=== PATIENT | female | born 1985 | race Caucasian/White ===

== ENCOUNTER → 2019-08-05 09:16 | Outpatient (CLI) | payer BC, SELFPAY ==
[2019-03-04 11:38] VITALS: BMI 36.1
--- NOTE | 2019-08-05 09:29 | MRI_ITS ---
STUDY: MRI BRAIN WITH AND WITHOUT CONTRAST REASON FOR EXAM: Female, 34 years old. vision changes, tremors, n/t TECHNIQUE: Standardized multiplanar fat and water weighted pulse sequences were obtained. IV 23cc dotarem was administered for the contrast portion of the examination. COMPARISON: None. FINDINGS: Normal size of the ventricles and extra-axial spaces for the patient''s age. Normal white matter tracts of the supratentorial brain. There is no evidence for recent intracranial ischemia or other cause of cytotoxic edema on diffusion weighted imaging (DWI). Normal T2* images of the brain without demonstrated susceptibility artifact. There is no demonstrated hemosiderin stain. Normal bilateral basal ganglia. Normal thalami. There is no extra-axial fluid accumulation. Normal flow voids within the major intracranial circulation suggesting patency by spin echo criteria. Normal venous enhancement. There is no enhancing intra-axial or extra-axial abnormality. Normal sella turcica, pituitary gland, infundibular stalk, optic chiasm and hypothalamus. Normal tectal plate and pineal gland. Normal midbrain, ada and medulla. Normal cerebellum. Normal basal cisterns. Normal bilateral temporal bones. Normal bilateral internal auditory canals. No demonstrated orbital abnormality, within the constraints of a routine brain study. Normal visualized paranasal sinuses. Normal calvarium and skull base. Normal visualized soft tissue structures. Normal visualized upper cervical spine. MRI/Brain W/WO Contrast IMPRESSION: Normal unenhanced and enhanced MRI of the brain. Electronically Signed: Shahid Soto MD at 12:22 EDT Tel , Service support ,
== END ==
PROVIDERS: PCP Nurse Practitioner Primary Care; Referring Provider Nurse Practitioner Primary Care; Visit Provider Nurse Practitioner Primary Care
DX: H53.9 Unspecified visual disturbance (principal); R29.818 Other symptoms and signs involving the nervous system; R25.1 Tremor, unspecified
CPT/HCPCS: 70553; A9575

== ENCOUNTER → 2020-01-14 15:01 | Outpatient (CLI) | payer BC, SELFPAY ==
[2020-01-14 14:55] VITALS: BMI 36.1
--- NOTE | 2020-01-14 15:02 | RAD_ITS ---
STUDY: X-RAY CHEST REASON FOR EXAM: Female, 34 years old. CHEST TIGHTNESS X 1 WEEK TECHNIQUE: Frontal and lateral views of the chest COMPARISON: None. FINDINGS: The lungs are clear and expanded. There is no demonstrated pleural abnormality. Normal size heart. Normal mediastinum and rober. Normal visualized pulmonary arteries. Normal visualized aortic arch and descending thoracic aorta. Normal visualized thoracic spine. Normal visualized ribs, clavicles, and shoulders. There is no demonstrated abnormality of the visualized soft tissue structures of the upper abdomen. RAD/Chest PA and Lateral IMPRESSION: Normal x-ray examination of the chest. Electronically Signed: Parisa Schmitz, at 15:21 EDT Tel , Service support ,
== END ==
PROVIDERS: PCP Nurse Practitioner Primary Care; Visit Provider Physician Assistant Surgical
DX: J20.9 Acute bronchitis, unspecified (principal)
CPT/HCPCS: 71046

== ENCOUNTER 2020-02-21 12:21 | Outpatient (RCR) | payer BC, SELFPAY ==
[2020-01-14 14:55] VITALS: BMI 36.1
== END 2020-02-23 23:59 ==
LOC: EMPH 12:21
PROVIDERS: PCP Nurse Practitioner Primary Care; Visit Provider Family Medicine Geriatric Medicine
DX: Z11.59 Encounter for screening for other viral diseases (principal)
CPT/HCPCS: 87635; U0003

== ENCOUNTER 2020-03-23 15:55 | Outpatient (RCR) | payer BC, SELFPAY ==
[2020-01-14 14:55] VITALS: BMI 36.1
== END 2020-03-25 23:59 ==
LOC: EMPH 15:55
PROVIDERS: PCP Nurse Practitioner Primary Care; Visit Provider Family Medicine Geriatric Medicine
DX: Z03.818 Encounter for observation for suspected exposure to other biological agents ruled out (principal)
CPT/HCPCS: 87426

== ENCOUNTER 2020-04-17 10:41 | Outpatient (RCR) | payer BC, SELFPAY ==
[2020-01-14 14:55] VITALS: BMI 36.1
== END 2020-04-24 23:59 ==
LOC: EMPH 10:41
PROVIDERS: PCP Nurse Practitioner Primary Care; Referring Provider Family Medicine Geriatric Medicine; Visit Provider Family Medicine Geriatric Medicine
DX: Z03.818 Encounter for observation for suspected exposure to other biological agents ruled out (principal)
CPT/HCPCS: 87426

== ENCOUNTER 2020-05-17 14:03 | Outpatient (RCR) | payer BC, SELFPAY ==
[2020-01-14 14:55] VITALS: BMI 36.1
== END 2020-05-25 23:59 ==
LOC: EMPH 14:03
PROVIDERS: PCP Nurse Practitioner Primary Care; Referring Provider Family Medicine Geriatric Medicine; Visit Provider Family Medicine Geriatric Medicine
DX: Z03.818 Encounter for observation for suspected exposure to other biological agents ruled out (principal)
CPT/HCPCS: 87426

== ENCOUNTER → 2020-06-15 17:47 | Outpatient (CLI) | payer OTHER, BC, SELFPAY ==
[2020-01-14 14:55] VITALS: BMI 36.1
--- NOTE | 2020-06-15 17:59 | MRI_ITS ---
Right sciatica. Chronic back pain MR Spine Lumbar W/O Contrast Technique:Sagittal T1-T2 and STIR and axial T1 and T2-weighted images # of images including paperwork:122 Comparison:none Findings: The conus ends at the L1-L2 disc space and appears within normal limits. L1-2: Disc height and hydration are preserved. There is no evidence of the disc contour abnormality or canal stenosis. No significant neural foraminal narrowing or nerve root impingement. L2-3: Disc height and hydration are preserved. There is no evidence of the disc contour abnormality or canal stenosis. No significant neural foraminal narrowing or nerve root impingement. L3-4: Disc height and hydration are preserved. There is no evidence of the disc contour abnormality or canal stenosis. No significant neural foraminal narrowing or nerve root impingement. L4-5: Disc height and hydration are preserved. There is no evidence of the disc contour abnormality or canal stenosis. No significant neural foraminal narrowing or nerve root impingement. L5-S1:There is a mild annular bulge at L5-S1. There is no significant neural foraminal narrowing or nerve root impingement MRI/Spine Lumbar (Routine) IMPRESSION: Minimal annular bulge L5-S1 with no significant nerve root impingement or neural foraminal narrowing at 0549 Reported and signed by: Sunshine Pickard DO Electronically Signed: Sunshine Pickard DO at 5:48 EST Tel , Service support ,
== END ==
PROVIDERS: PCP Nurse Practitioner Primary Care; Referring Provider Nurse Practitioner Primary Care; Visit Provider Nurse Practitioner Primary Care
DX: M54.41 Lumbago with sciatica, right side (principal); G89.29 Other chronic pain
CPT/HCPCS: 72148

== ENCOUNTER → 2021-11-12 | Outpatient (CLI) | payer OTHER, BC, SELFPAY ==
--- NOTE | 2021-11-12 13:15 | RAD_ITS ---
STUDY: X-RAY - RIGHT WRIST REASON FOR EXAM: Female, 36 years old. wrist pain TECHNIQUE: 3 view(s) of the wrist were obtained. COMPARISON: None. FINDINGS: Normal visualized distal radius and ulna. Normal radiocarpal articulation. Normal distal radioulnar articulation. Normal carpal bones. Normal carpal articulations. Normal carpometacarpal articulation of the thumb. Normal second through fifth carpometacarpal articulations. Normal visualized metacarpal bones. The soft tissue structures are unremarkable. RAD/Wrist min 3 Views IMPRESSION: Normal x-ray examination of the wrist. Electronically Signed: Shahid Soto MD at 13:39 EDT ,
== END | disposition home or self-care (01) ==
PROVIDERS: PCP Internal Medicine; Referring Provider Physician Assistant Surgical; Visit Provider Physician Assistant Surgical
DX: S66.911A Strain of unspecified muscle, fascia and tendon at wrist and hand level, right hand, initial encounter (principal)
CPT/HCPCS: 73110

== ENCOUNTER → 2022-01-16 | Outpatient (CLI) | payer OTHER, BC, SELFPAY ==
--- NOTE | 2022-01-16 16:18 | CT_ITS ---
STUDY: CT ABDOMEN AND PELVIS WITH CONTRAST REASON FOR EXAM: Female, 36 years old. Left lower quadrant pain beginning 5 days ago. Today with right sided pain. History of left UPJ obstruction with surgery. RADIATION DOSAGE (If Supplied By Facility): CTDIvol = ( 19.64 ) mGy, DLP = ( 1135.01 ) mGycm TECHNIQUE: Transaxial images were obtained from the dome of the diaphragm to the symphysis pubis with oral contrast. IV 100mL Isovue-370 was administered. Sagittal and coronal images were reconstructed. Individualized dose optimization techniques were used for this CT. COMPARISON: None. FINDINGS: The visualized lung bases are unremarkable. The visualized portions of the heart are within normal limits. There is hepatomegaly with diffuse hepatic enlargement. Normal gallbladder and extrahepatic biliary system. Normal spleen. Normal pancreas. Normal bilateral adrenal glands. 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 It is otherwise unremarkable. Normal left kidney. Normal bilateral ureters. Normal visualized stomach. Normal small intestine. Normal colon. The appendix is visualized and appears normal. Normal abdominal aorta. Normal inferior vena cava. Normal retroperitoneum. Normal urinary bladder. Normal uterine. There is a 2.1 x 1.3 x 2.1 cm cyst versus dominant follicle left ovary. Normal right ovary. No pelvic lymphadenopathy. No free air or free fluid is seen within the cavity. There is a surgical clip in the anterior cul-de-sac. As well as another in the posterior cul-de-sac. Question displaced tubal ligation clips. Normal abdominal wall. Normal osseous structures. CT/Abdomen/Pelvis WITH Contrast IMPRESSION: 1. Mild hepatomegaly without mass. 2. Left ovarian cyst versus dominant follicle. 3. Surgical clips in the pelvis thought to BE displaced tubal ligation clips. 4. Otherwise normal CT of the abdomen and pelvis. Electronically Signed: Jacinto Zavala DO at 20:56 EDT ,
== END | disposition home or self-care (01) ==
LOC: CT 16:16
PROVIDERS: PCP Internal Medicine; Referring Provider Nurse Practitioner; Visit Provider Nurse Practitioner
DX: R42 Dizziness and giddiness (principal); R10.32 Left lower quadrant pain; R10.823 Right lower quadrant rebound abdominal tenderness; R10.811 Right upper quadrant abdominal tenderness; D72.829 Elevated white blood cell count, unspecified
CPT/HCPCS: 74177; Q9967

== ENCOUNTER → 2022-04-22 | Outpatient (CLI) | payer OTHER, BC, SELFPAY ==
--- NOTE | 2022-04-22 12:44 | RAD_ITS ---
STUDY: X-RAY - LUMBAR SPINE REASON FOR EXAM: Female, 36 years old. Back pain. TECHNIQUE: 4 view(s) of the lumbar spine were obtained. COMPARISON: None FINDINGS: Normal lumbar lordosis. There is no substantial scoliosis. There is a normal alignment of the vertebrae. Normal vertebral bodies and endplates. Normal disc space heights. The soft tissue structures are unremarkable. RAD/L/S Spine Min 4 Views IMPRESSION: Normal x-ray examination of the lumbar spine. Electronically Signed: Leroy Rahman, at 10:29 EST ,
== END | disposition home or self-care (01) ==
PROVIDERS: PCP Nurse Practitioner; Referring Provider Chiropractor; Visit Provider Chiropractor
DX: M99.05 Segmental and somatic dysfunction of pelvic region (principal); M99.03 Segmental and somatic dysfunction of lumbar region
CPT/HCPCS: 72110